=== PATIENT | female | born 1980 | race Caucasian/White ===

== ENCOUNTER 2016-07-25 18:15 | Emergency (ER) | payer MEDICAID ==
[~2016-07-25] VITALS: Ht 180.3 cm; Wt 115.8 kg
[~2016-07-25 18:15] MED LIST: BUPR150T3 PO; FLUO-138 PO; OXYC1TAB8 PO
[2016-07-25 18:23] VITALS: Ht 180.3 cm; Wt 115.8 kg
--- NOTE | 2016-07-25 18:36 | ERPDOC ---
Departure Disposition Decision Date: Jul 25, 2016 Disposition Decision Time: 19:11 Disposition: 01 DISCHARGED HOME, SELF-CARE Impression Impression Impression: Primary Impression: Fibula fracture Condition: Stable Seen By: Mid-level only Referrals: OTHER (Family) KEYLA OCONNOR MD Patient Instructions: Ankle Fracture (ED) Problems/Meds/Labs Reviewed?: Yes Medications reviewed and manag: Yes Additional Instructions: 1. Keep lower leg elevated as much as possible 2. You may walk on the boot 3. Take pain meds as prescribed 4. Follow up with your PCP or ortho clinic-they have been called. Follow up care ordered?: Yes Mental Status: Alert, Oriented Scripts Hydrocodone/Acetaminophen ([place] 5-325 Tablet) 5-325 Tablet 1 TAB PO Q6H, #15 TAB 0 Refills Prov: EDWARD HARO APRN 07/25/16 HPI General Chief Complaint: Lower Extremity Injury Stated Complaint: FOOT & ANKLE PAIN Time Seen by Provider: 18:35 Source: patient Exam Limitations: no limitations HPI Foot/Ankle Initial Comments Verenice is a 36 year old female who presents into the ER with cc: twisted left ankle tripping over the baby and potty chair at home about 2 hours [employer]. Reports pain and swelling. Did ice at home, did not take any pain medication. Occurred At: home Onset: Rapid Duration: 1-3 hrs Pain Scale: Now: 8/10 Location: left: ankle Method of Injury: twisted Modifying Factors: WORSE WITH: movement Associated Symptoms: DENIES: numbness Allergies: Coded Allergies: No Known Allergies (Unverified , 07/25/16) Past History Past Medical History Cardiac: other GI: gallbladder disease Musculoskeletal: back pain, neck pain Psychological: depression, suicide attempt Surgical History General: gallbladder Cardiac: pacemaker Reproductive/: , hysterectomy Family History Family PMH: FOUND: other Social History Does patient use chewing tobac: No # of Years: 1 Second Hand Exposure: Yes Substance Use Type: does not use Alcohol Intake: none Sexuality: male partner Household Members: significant other, children Review of Systems Constitutional Constitutional: DENIES: fever Musculoskeletal General: pain (left ankle) Neurological General: DENIES: numbness All other Systems All Other Systems: Reviewed and Negative Exam General General Nourishment: appears stated age, no acute distress, obese Height (Feet): 5 Height (Inches): 11.00 Musculoskeletal (brief) Musculoskeletal Brief: FOUND: tenderness (left posterior ankle/lateral malleolus with swelling, ecchymosis/point tenderness) Integumentary (brief) Integumentary Brief: FOUND: dry, other (no open areas), pink, warm Neurologic RN Documented GCS Eye Opening: Verbal: Motor: Total: Differential Diagnoses Considering: Dislocation, Fracture, Sprain Procedures Splinting Procedure Splint : Site: left lower leg Pre-placement NV: FOUND: good movement, good sensation Pre-Made Type: CAM walker Applied by: RN Progress Results/Orders Orders Procedure Category Date Status Time Ankle Left 3 View RAD 07/25/16 Taken Consult/PCP Consult/PCP : Physician Contacted: Ari Time Called: 19:00 Time of first response: 19:01 Type of discussion: Phone Consult/PCP Discussion Details Recommende CAM boot and outpatient f/u Xray Xray : Xray: Ankle L Interpretation: Abnormal (possible distal fibula fx-cortical disruption medially), Interpreted by Me (enedina/roderick) EDWARD HARO APRN Jul 25, 2016 18:36
--- NOTE | 2016-07-25 18:43 | NUR ---
XRAY RADIOLOGY AT BEDSIDE FOR ANKLE XRAY
[2016-07-25] MEDS ORDERED: HYDR-4246 PO (19:13)
[2016-07-25 19:22] VITALS: BP 115/59; PULSE 79; RESP 19; TEMP 97.8; O2SAT 96
[2016-07-25] MEDS ORDERED: HYDROCODONE/APAP 5 mg/325 mg TABLET PO ONE (19:30)
--- NOTE | 2016-07-27 13:26 | DI ---
Indication: ITS.REASON: FALL, TWISTED ANKLE PROCEDURE: ANKLE LEFT 3 VIEW: Encounter: Initial Comparison: None Findings: There is no acute fracture, dislocation or malalignment identified. Moderate lateral soft tissue swelling. Inferior calcaneal spurring. Impression: No acute osseous abnormality. .
== END 2016-07-25 19:22 | disposition home or self-care (01) ==
LOC: ED 18:15
DX: S82.832A Other fracture of upper and lower end of left fibula, initial encounter for closed fracture (principal); W18.40XA Slipping, tripping and stumbling without falling, unspecified, initial encounter; Y93.9 Activity, unspecified; Y92.009 Unspecified place in unspecified non-institutional (private) residence as the place of occurrence of the external cause; Y99.8 Other external cause status

== ENCOUNTER 2016-08-06 15:38 | Emergency (ER) | payer MEDICAID ==
[~2016-08-06] VITALS: Ht 180.3 cm; Wt 123.1 kg
[~2016-08-06 15:38] MED LIST changes: +HYDR-4246 PO; -OXYC1TAB8 PO
[2016-08-06 15:55] VITALS: Ht 180.3 cm; Wt 123.1 kg
--- NOTE | 2016-08-06 16:39 | NUR ---
PROVIDER DR SWEET TO SEE PT
[2016-08-06] MEDS ORDERED: HYDR-4246 PO (16:46)
[2016-08-06] MEDS ORDERED: AMOX500T2 PO (16:46)
--- NOTE | 2016-08-06 16:47 | ERPDOC ---
Departure Disposition Decision Date: Aug 06, 2016 Disposition Decision Time: 16:45 Disposition: 01 DISCHARGED HOME, SELF-CARE Impression Impression Impression: Primary Impression: Dental infection Severity: Moderate Condition: Stable Seen By: Physician only Referrals: KITTY MOULTON APRN (Family) Patient Instructions: Dental Abscess (ED) Problems/Meds/Labs Reviewed?: Yes Medications reviewed and manag: Yes Additional Instructions: [facility] Follow up care ordered?: Yes Mental Status: Alert, Oriented HPI General Chief Complaint: Toothache Stated Complaint: TOOTH PAIN Time Seen by Provider: 16:45 Source: patient Exam Limitations: no limitations HPI Dental Initial Comments Patient is a 36-year-old female presents emergency room for evaluation of a three-day history of left upper dental pain. Patient states she's had a foul taste in her mouth last 2 days. [facility] in a [facility], however having increasing pain so patient decided present to the ER for evaluation no fevers no chills no other systemic signs or symptoms Occurred At: home Allergies: Coded Allergies: No Known Allergies (Unverified , 08/06/16) Past History Past Medical History ENMT: dental problems Cardiac: other GI: gallbladder disease Musculoskeletal: back pain, neck pain Psychological: depression, suicide attempt Surgical History General: gallbladder Cardiac: pacemaker Reproductive/: , hysterectomy Family History Family PMH: FOUND: other Social History Does patient use chewing tobac: No # of Years: 1 Second Hand Exposure: Yes Substance Use Type: does not use Alcohol Intake: none Sexuality: male partner Household Members: significant other, children Review of Systems Constitutional Constitutional: DENIES: appetite decrease, chills, dizziness, fever ENMT Sinuses: DENIES: congestion Mouth/Throat: DENIES: sore throat Teeth: chipped/cracked tooth, pain Jaw: DENIES: clicking, popping Cardiovascular Cardiac: DENIES: chest pain, dyspnea on exertion Pulmonary Respiratory: DENIES: cough, dyspnea, sputum, tachypnea GI Upper Abdomen: DENIES: nausea, pain, vomiting Lower Abdomen: DENIES: constipation, diarrhea, pain General: DENIES: frequency, urgency Musculoskeletal General: DENIES: cramps, pain, weakness Integumentary Skin: DENIES: color change, itching, rash Endocrine Endocrine: DENIES: heat/cold intolerance Hematologic/Lymphatic Hematologic/Lymphatic: DENIES: anemia Exam General General Nourishment: well nourished, well developed Vital Signs: Temperature: 98.0, Source: Oral, Heart Rate: 92, Respiratory Rate : 16, BP: 140/76, Pulse Oximetry: 96 Height (Feet): 5 Height (Inches): 11.00 Fastrak Dental Face: NOT FOUND: bruising, swelling Glands: NOT FOUND: L parotid swollen, R parotid swollen Lips: NOT FOUDN: laceration Gums: moist, pink, NOT FOUND: swelling Teeth: caries, fractures, missing Pharynx: NOT FOUND: erythema, exudate, swelling Neck: NOT FOUND: R anterior adenopathy, R posterior adenopathy Neurologic RN Documented GCS Eye Opening: Verbal: Motor: Total: Differential Diagnoses Considering: Caries, Epiglottitis, Retained Foreign Body, Gingivitis, Impacted Tooth, Tooth Avulsion/Extrusion, Tooth Fracture CEE SWEET MD Aug 06, 2016 16:47
[2016-08-06] MEDS ORDERED: IBUP-1724 PO (16:49)
[2016-08-06] MEDS ORDERED: NO ROUTINE MEDS (16:49)
[2016-08-06 16:52] VITALS: BP 140/76; PULSE 92; RESP 16; TEMP 98; O2SAT 96
--- NOTE | 2016-08-06 16:52 | NUR ---
DISMISSAL DISMISSAL INSTRUCTIONS WITH RX X2. NO FURTHER QUESTIONS AT THIS TIME. PT LEFT DEPARTMENT AMBAULTORY IN NO DISTRESS
== END 2016-08-06 16:52 | disposition home or self-care (01) ==
LOC: ED 15:38
DX: K04.7 Periapical abscess without sinus (principal); K02.9 Dental caries, unspecified

== ENCOUNTER 2016-08-29 16:55 | Emergency (ER) | payer MEDICAID ==
[~2016-08-29] VITALS: Ht 172.7 cm; Wt 109.6 kg
[~2016-08-29 16:55] MED LIST changes: -BUPR150T3 PO; -FLUO-138 PO; -HYDR-4246 PO; +IBUP-1724 PO; +NO ROUTINE MEDS
[2016-08-29 16:58] VITALS: Ht 172.7 cm; Wt 109.6 kg
--- NOTE | 2016-08-29 17:13 | NUR ---
PROVIDER DR. BAE AT BEDSIDE FOR EXAM.
--- NOTE | 2016-08-29 17:23 | ERPDOC ---
Departure Disposition Decision Date: August 29, 2016 Disposition Decision Time: 17:34 Disposition: 01 DISCHARGED HOME, SELF-CARE Impression Impression Impression: Primary Impression: Jaw pain Severity: Moderate Condition: Improved Seen By: Physician only Referrals: KENNEYKITTY APRN (Family) Patient Instructions: Toothache (ED) Problems/Meds/Labs Reviewed?: Yes Medications reviewed and manag: Yes Follow up care ordered?: Yes Scripts Gabapentin (Neurontin) 100 Mg Capsule 1 TAB PO BID for 30 Days, #60 CAP Prov: BRADLEY BAE MD 08/29/16 Clindamycin HCl (Clindamycin HCl) 300 Mg Capsule 1 CAP PO QID, #40 CAP TAKE WITH A FULL GLASS OF WATER TO AVOID ESOPHAGEAL IRRITATION. Prov: BRADLEY BAE MD 08/29/16 HPI General Chief Complaint: Toothache Stated Complaint: TOOTH PAIN Time Seen by Provider: 17:05 HPI Dental Initial Comments 36-year-old female presents with jaw pain. She was seen here previously and given pain meds for short-term until she could get into her dentist. She states that she did go see the dentist, had a tooth pulled but the pain has continued. She was placed on amoxicillin and changed from [place] to Percocet because the pain was so bad. He recommended that she see an oral surgeon, and he is making an appointment with one for her. She ran out of pain medication this morning and fell asleep and when she woke up his office was closed. She has finished the antibiotics. Allergies: Coded Allergies: No Known Allergies (Unverified , 08/06/16) Past History Past Medical History ENMT: dental problems Cardiac: other GI: gallbladder disease Musculoskeletal: back pain, neck pain Psychological: depression, suicide attempt Surgical History General: gallbladder Cardiac: pacemaker Reproductive/: , hysterectomy Family History Family PMH: FOUND: other Social History Does patient use chewing tobac: No # of Years: 1 Second Hand Exposure: Yes Substance Use Type: does not use Alcohol Intake: none Sexuality: male partner Household Members: significant other, children Record Review Pertinent history updated: Yes Review of Systems ENMT Teeth: see HPI Jaw: see HPI All other Systems All Other Systems: Reviewed and Negative Exam General General Nourishment: well nourished, well developed, appears stated age, no acute distress General Body Habitus: well groomed Vital Signs: Temperature: 97.8, Source: Oral, Heart Rate: 90, Respiratory Rate : 16, BP: 143/85, Pulse Oximetry: 95 Height (Feet): 5 Height (Inches): 8.00 Fastrak Dental Face: NOT FOUND: bruising, erythema, swelling Jaw: NOT FOUND: asymmetry Glands: NOT FOUND: L parotid swollen, R parotid swollen Gums: NOT FOUND: moist, pink Tongue: NOT FOUND: geographic, swelling Neck: NOT FOUND: L anterior adenopathy, L posterior adenopathy, R anterior adenopathy, R posterior adenopathy Respiratory (brief) Respiratory Brief: FOUND: clear all jacinto, equal bilaterally Cardiovascular (brief) Cardiac Brief: FOUND: regular rate, regular rhythm Neurologic RN Documented GCS Eye Opening: Verbal: Motor: Total: Differential Diagnoses Considering: Gingival Abscess, Dry Socket, Impacted Tooth, Laceration, Tooth Avulsion/Extrusion Progress Progress Progress Patient has healing gum from tooth removal. She states she has bad taste and can feel drainage from it, I don't see any. The gum itself does not look hot and red, but is quite tender to touch. If the amoxicillin is not covered, I would change her to clindamycin 300 mg 4 times daily. Would use Neurontin for pain relief and have her follow up with a dentist on Thursday. She had no difficult breathing or swallowing. No cellulitis noted under chin. BRADLEY BAE MD August 29, 2016 17:23
[2016-08-29] MEDS ORDERED: GABA100C PO (17:38)
[2016-08-29] MEDS ORDERED: CLIN300C86 PO (17:38)
[2016-08-29 17:47] VITALS: BP 136/72; PULSE 95; RESP 16; TEMP 97.8; O2SAT 98
--- NOTE | 2016-08-29 17:47 | NUR ---
DISCHARGE WRITTEN INSTRUCTIONS WITH CLINDAMYCIN AND GABAPENTIN RX REVIEWED AND SENT WITH PT. PT VERBALIZES UNDERSTANDING OF DI AND MEDICATIONS. DENIES CHANGE IN PAIN. PT AMBULATES OUT OF ER WITH STEADY GAIT TO LOBBY AT THIS TIME.
== END 2016-08-29 17:47 | disposition home or self-care (01) ==
LOC: ED 16:55
DX: R68.84 Jaw pain (principal)

== ENCOUNTER 2016-09-02 16:11 | Emergency (ER) | payer MEDICAID ==
[~2016-09-02] VITALS: Ht 180.3 cm; Wt 109.6 kg
[~2016-09-02 16:11] MED LIST changes: +CLIN300C86 PO; +GABA100C PO; -IBUP-1724 PO
[2016-09-02 16:12] VITALS: Ht 180.3 cm; Wt 109.6 kg
[2016-09-02] MEDS ORDERED: KETOROLAC 60mg/2ml INJECTION IM ONE (16:30)
[2016-09-02] MEDS ORDERED: ORPHENADRINE 60mg/2ml INJECTION IM ONE (16:30)
[2016-09-02] MEDS ORDERED: BUPR150T3 PO (16:31)
[2016-09-02] MEDS ORDERED: HYDR-347 PO (16:31)
[2016-09-02] MEDS ORDERED: FLUO-138 PO (16:31)
--- NOTE | 2016-09-02 16:31 | ERPDOC ---
Departure Disposition Decision Date: September 02, 2016 Disposition Decision Time: 18:31 Disposition: 01 DISCHARGED HOME, SELF-CARE Impression Impression Impression: Primary Impression: Low back pain Chronicity: acute Back pain laterality: left Sciatica presence: with sciatica Sciatica laterality: sciatica of left side Qualified Codes: M54.42 - Lumbago with sciatica, left side Severity: Moderate Condition: Stable Seen By: Mid-level only Referrals: KITTY MOULTON APRN (Family) Patient Instructions: Acute Low Back Pain (ED) Problems/Meds/Labs Reviewed?: Yes Medications reviewed and manag: Yes Additional Instructions: Take the [place] that you have at home for the pain and use the Cyclobenzaprine as well. If you are not improving over the next few days then please follow up with your primary care provider. May use warm compresses to the back as well. Follow up care ordered?: Yes Mental Status: Alert Scripts Cyclobenzaprine HCl (Cyclobenzaprine HCl) 10 Mg Tablet 1 TAB PO TID, #15 TAB 0 Refills Prov: GENE JULES Lea OLMOS 09/02/16 HPI - Back Pain General Chief Complaint: Lower Extremity Pain Stated Complaint: HIP PAIN Time Seen by Provider: 16:14 Source: patient Exam Limitations: no limitations HPI - Back Pain Initial Comments She has been having some mild pain in the left lower back over the last few days. Today she went out and ran some errands. Came home and was mopping the kitchen when she had onset of severe left lower back pain. Has not ever had pain like this in the past. Denies any fall or trauma at all to her back. Has not taken anything at home for the pain prior to coming to Er. Denies any other symptoms. Pain is severe and radiates down her left leg. Occurred At: home Onset/Timing: Gradual Duration: other (Over the last several days) Severity/Quality: severe Location: other Radiation: upper legs (left) 1 - area of pain Method of Injury/Context: unknown Associated Sypmtoms: lower back pain, muscle spasms, DENIES: fever, loss of bladder control, loss of bowel control, numbness in legs/feet, sensory/motor loss, tingling in legs/feet, weakness Hx of Similar Symptoms: No Allergies: Coded Allergies: No Known Allergies (Unverified , 4/12/17) Past History Past Medical History ENMT: dental problems Cardiac: other GI: gallbladder disease Musculoskeletal: back pain, neck pain Psychological: depression, suicide attempt Surgical History General: gallbladder Cardiac: pacemaker Reproductive/: , hysterectomy Family History Family PMH: FOUND: other Social History Does patient use chewing tobac: No # of Years: 1 Second Hand Exposure: Yes Substance Use Type: does not use Alcohol Intake: none Sexuality: male partner Household Members: significant other, children Review of Systems Constitutional Constitutional: DENIES: chills, dizziness, fatigue, fever, weakness Cardiovascular Cardiac: DENIES: chest pain, orthopnea Rhythm/Rate: DENIES: irregular beat, palpitations Vascular: DENIES: pedal edema, unilateral swelling Pulmonary Respiratory: DENIES: cough, dyspnea, sputum, tachypnea GI Upper Abdomen: DENIES: nausea, pain, vomiting Lower Abdomen: DENIES: constipation, diarrhea, pain General: DENIES: dysuria, frequency, hematuria, urgency Musculoskeletal General: pain (right lower back), tenderness (right lower back), DENIES: joint pain, joint swelling, weakness Integumentary Skin: DENIES: rash Neurological General: DENIES: headache, numbness, tingling, weakness Physical Exam General General Nourishment: well nourished, well developed, appears stated age, adult , acute distress (Very tearful and appears in pain.) General Body Habitus: well groomed Vitals and Pain First Documented Vital Signs Date Time Temp Pulse Resp B/P Pulse Ox O2 Delivery O2 Flow Rate FiO2 09/02/16 16:12 98.3 110 20 142/96 96 Room Air Weight: Kilograms: Height (feet): 5 Height (inches): 8.00 Triage Pain Scale: RN VS reviewed by Provider: Yes Normal Exams: Neck: Full range of motion, without adenopathy, JVD, bruits or thyromegaly Chest/Resp: Clear all jacinto, with good airflow, and symmetry bilaterally CV: Regular rate and rhythm, without murmur or gallop, Pulses 2+ all extremities, capillary refill, <2 seconds all ext., no pedal edema noted Abdomen: Bowel sounds positive, soft, non-tender, non-distended, no hepatosplenomegaly, masses or bruits noted Lymphatic: No lymphadenopathy, or lymphedema noted Integumentary: No rashes, hives, or bruising noted Neurologic: Patient is alert, and oriented Psychiatric: Patient exhibits, appropriate attention, emotion and affect Musculoskeletal (brief) Musculoskeletal Brief: FOUND: tenderness (Moderate TTP over the left lower back musculature and over the SI joint. Is able to move about freely on bed. Is rocking side to side on cart but stays on right side mostly. 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 Medications Current ED Medications Ketorolac Tromethamine (Toradol) 60 mg O ONCE IM Last administered on 16:44; Start 09/02/16 at 16:30; Stop 09/02/16 at 16:31; Status DC Orphenadrine Citrate (Norflex) 60 mg O ONCE IM Last administered on 09/02/16 16:44; Start 09/02/16 at 16:30; Stop 09/02/16 at 16:31; Status DC Hydromorphone HCl (Dilaudid) 1 mg O ONCE IV Last administered on 09/02/16 17: 20; Start 09/02/16 at 17:15; Stop 09/02/16 at 17:16; Status DC Progress Progress UA today is clear. No blood indicating a possible kidney stone. She was laying on the cart on her right side, no longer is writhing in pain. She does have [place] at home but she does not like to use it. Will encourage her to use this and also use the Cyclobenzaprine. May use warm compresses. GENE JULES APRN September 02, 2016 16:31
[2016-09-02] MEDS ORDERED: HYDROMORPHONE 2mg/ml INJECTION IV ONE (17:15)
[2016-09-02 18:22] LABS: BLOOD, URINE NEGATIVE (NEGATIVE); COLOR,URINE YELLOW (YELLOW); LEUKOCYTE ESTERASE ,URINE NEGATIVE (NEGATIVE); NITRITE,URINE NEGATIVE (NEGATIVE); UROBILINOGEN,URINE 0.2 EU/DL (NORMAL)
[2016-09-02] MEDS ORDERED: CYCL-375 PO (18:33)
[2016-09-02 18:58] VITALS: BP 135/78; PULSE 95; RESP 16; TEMP 98.3; O2SAT 97
== END 2016-09-02 18:58 | disposition home or self-care (01) ==
LOC: ED 16:11
DX: M54.42 Lumbago with sciatica, left side (principal)
CPT/HCPCS: 81003; 96372; 99283; J1170; J1885; J2360